=== PATIENT | female | born 2000 | race Two or more races ===

== ENCOUNTER 2021-06-15 20:20 | Emergency (ER) | payer OTHER ==
[~2021-06-15] VITALS: Ht 157.5 cm; Wt 56.7 kg
[2021-06-16] MEDS ORDERED: ZYRTEC10 MG PO (02:16)
[2021-06-16] MEDS ORDERED: ZITHROMAX500 MG PO (02:16)
== END 2021-06-16 02:24 ==
LOC: ER 20:20 → EMR PED 20:25 → ER 20:25
DX: O26.891 Other specified pregnancy related conditions, first trimester (principal); Z3A.01 Less than 8 weeks gestation of pregnancy; Z03.818 Encounter for observation for suspected exposure to other biological agents ruled out; A49.3 Mycoplasma infection, unspecified site

== ENCOUNTER 2025-02-16 19:45 | Inpatient (IN) | payer OTHER ==
[~2025-02-16] VITALS: Ht 157.5 cm; Wt 2.7 kg
[~2025-02-16 19:45] MED LIST: ZITHROMAX500 MG PO; ZYRTEC10 MG PO
[2025-02-16 20:22] VITALS: BP 100/65
[2025-02-16 20:47] LABS: BASO % 0.4 % (0.1-1.2); EOS # 0.20 (0.04-0.54); EOS % 2.4 % (0.7-7.0); LYMPH # 2.06 (1.18-3.74); LYMPH % 24.4 % (19.3-53.1); MEAN PLATELET VOLUME 9.20 fl (9.4-12.4); MONO # 0.42 (0.24-0.82); MONO % 5.0 % (4.7-12.5); NEUT # 5.71 (1.56-6.13); NEUT % 67.4 % (34.0-71.1); RED CELL DISTRIBUTION WIDTH 14.2 % (11.6-14.4)
[2025-02-16 20:48] LABS: URINE APPEARANCE Cloudy; URINE BILIRRUBIN Negative (NEGATIVE); URINE BLOOD Negative; URINE COLOR Yellow; URINE GLUCOSE Negative (NEGATIVE); URINE KETONE 15 (NEGATIVE); URINE LEUKOCYTE Small; URINE NITRATE Negative; URINE PROTEIN Trace (NEGATIVE); URINE UROBILINOGEN 1.0 E.U./dl
[2025-02-16 20:52] LABS: URINE BACTERIA 2913.4 uL (0.0-1933); URINE EPITHELIAL CELLS 111.8 uL (0.0-38.8); URINE RBC 8.9 uL (0.0-20.8); URINE WBC 85.6 uL (0.0-23.2)
[2025-02-16 21:09] LABS: INR < 0.93
[2025-02-16 21:16] LABS: URINE CAST 0.87 uL (0.0-1.40)
[2025-02-16] MEDS ORDERED: PRENATA CHEWAB1 EACH PO (22:10)
[2025-02-16] MEDS ORDERED: RINGERS SOLUTION,LACTATED 1,000 ML IV SCH (22:15)
[2025-02-16] MEDS ORDERED: CEFAZOLIN SODIUM 1,000 MG VIAL IV SCH (23:00)
[2025-02-16 23:49] VITALS: BP 121/70
[2025-02-17 03:33] VITALS: BP 96/60
[2025-02-17 06:22] VITALS: BP 98/61; O2SAT 98
[2025-02-17 11:39] VITALS: BP 92/59; O2SAT 99
[2025-02-17 14:42] LABS: BASO % 0.4 % (0.1-1.2); EOS # 0.18 (0.04-0.54); EOS % 2.1 % (0.7-7.0); LYMPH # 1.87 (1.18-3.74); LYMPH % 22.1 % (19.3-53.1); MEAN PLATELET VOLUME 8.80 fl (9.4-12.4); MONO # 0.40 (0.24-0.82); MONO % 4.7 % (4.7-12.5); NEUT # 5.95 (1.56-6.13); NEUT % 70.5 % (34.0-71.1); RED CELL DISTRIBUTION WIDTH 14.7 % (11.6-14.4)
[2025-02-17 15:27] VITALS: BP 102/65
[2025-02-17] MEDS ORDERED: KETOROLAC TROMETHAMINE 60 MG VIAL IM STA (20:36)
[2025-02-17] MEDS ORDERED: MORPHINE SULFATE 4 MG/ML VIAL IV PRN (20:45)
[2025-02-17] MEDS ORDERED: OXYTOCIN 1,000 ML IV SCH (20:45)
[2025-02-17] MEDS ORDERED: RINGERS SOLUTION,LACTATED 1,000 ML IV SCH (20:45)
[2025-02-17] MEDS ORDERED: CHLORHEXIDINE GLUCONATE 120 ML BOTTLE TOP SCH (20:45)
[2025-02-17 21:37] LABS: BASO % 0.3 % (0.1-1.2); EOS # 0.09 (0.04-0.54); EOS % 1.4 % (0.7-7.0); LYMPH # 1.46 (1.18-3.74); LYMPH % 23.0 % (19.3-53.1); MEAN PLATELET VOLUME 9.30 fl (9.4-12.4); MONO # 0.30 (0.24-0.82); MONO % 4.7 % (4.7-12.5); NEUT # 4.44 (1.56-6.13); NEUT % 70.1 % (34.0-71.1); RED CELL DISTRIBUTION WIDTH 14.9 % (11.6-14.4)
[2025-02-17] MEDS ORDERED: ERYTHROMYCIN BASE OPHT 1GM EACH TUBE OP ONE (22:15)
[2025-02-17] MEDS ORDERED: CEFAZOLIN SODIUM 1,000 MG VIAL IV ONE (22:15)
[2025-02-17] MEDS ORDERED: OXYTOCIN 10 UNITS/ML VIAL IV ONE (22:15)
[2025-02-17] MEDS ORDERED: MORPHINE SULFATE 4 MG/ML VIAL IV ONE (23:35)
[2025-02-18 01:00] VITALS: BP 105/62
[2025-02-18 08:00] VITALS: BP 118/75
[2025-02-18] MEDS ORDERED: OxyCODONE HCL 5 MG TABLET (ROXICODONE) PO PRN (09:00)
[2025-02-18] MEDS ORDERED: ACETAMINOPHEN 325 MG TABLET PO PRN (09:00)
[2025-02-18 16:40] VITALS: BP 113/77
[2025-02-19 02:42] VITALS: BP 104/71
[2025-02-19 08:56] VITALS: BP 110/77
[2025-02-19 16:18] VITALS: BP 109/80
[2025-02-20] VITALS: BP 107/74
== END 2025-02-20 13:59 | disposition home or self-care (01) | DRG 788 ==
LOC: LDR 19:45 → O/R 02-17 19:49 → OB/GYN 02-17 20:36
PROVIDERS: ADMIT Obstetrics & Gynecology; ATTEND Obstetrics & Gynecology
PROC: 4A1HXCZ Monitoring of Products of Conception, Cardiac Rate, External Approach (ICD-10-PCS; 2025-02-16)
PROC: 10D00Z1 Extraction of Products of Conception, Low, Open Approach (ICD-10-PCS; principal; 2025-02-17 15:00)
DX: O36.5930 Maternal care for other known or suspected poor fetal growth, third trimester, not applicable or unspecified (principal); O99.824 Streptococcus B carrier state complicating childbirth; O34.211 Maternal care for low transverse scar from previous cesarean delivery; Z3A.38 38 weeks gestation of pregnancy; Z37.0 Single live birth